=== PATIENT | female | born 1965 | race Caucasian/White ===

== ENCOUNTER 2019-08-30 11:52 | Outpatient (CLI) | payer BC, SELFPAY ==
[2019-08-30 12:37] LABS: Basophils Percent Auto 0.5 % (0.2-1.2); Eosinophils Absolute Auto 0.1 K/mm3 (0-0.3); Eosinophils Percent Auto 1.1 % (0-4.4); Hematocrit 51.3 % (37.0-47.0); Hemoglobin 17.2 g/dL (12.0-15.0); Immature Granulocyte Absolute 0.02 K/mm3 (0.00-0.031); Immature Granulocyte Percent A 0.2 % (0-0.5); Lymphocytes Absolute Auto 2.05 K/mm3 (0.9-3.2); Lymphocytes Percent Auto 25.2 % (18.3-44.2); Mean Corpuscular HGB Conc 33.5 g/dl (32-36); Mean Corpuscular Hemoglobin 30.1 pg (26-34); Mean Corpuscular Volume 89.7 fl (80-100); Mean Platelet Volume 10.7 fl (7.4-10.4); Monocytes Absolute Auto 0.6 K/mm3 (0.1-0.6); Monocytes Percent Auto 6.8 % (2.6-8.5); Neutrophils Absolute Auto 5.4 K/mm3 (1.3-6.7); Neutrophils Percent Auto 66.2 % (45.5-73.1); Platelet Count Result 266 k/mm3 (150-375); Red Blood Count 5.72 M/mm3 (4.2-5.4); Red Cell Distribution Width 12.7 % (11.5-14.5); White Blood Count 8.1 K/mm3 (4.5-10.0)
[2019-08-30 12:50] LABS: Alanine Aminotransferase 81 U/L (4-35); Albumin Level 4.6 g/dL (3.5-5.1); Alkaline Phosphatase 89 U/L (38-126); Amylase 103 U/L (30-110); Aspartate Amino Transferase 51 U/L (14-36); Blood Urea Nitrogen 21 mg/dL (7-17); Calcium 9.4 mg/dL (8.4-10.2); Carbon Dioxide 28 mmol/L (22-30); Chloride 101 mmol/L (98-107); Estimated Glomerular Filt Rate > 60; Glucose 93 mg/dL (65-105); Lipase 48 U/L (23-300); Potassium 4.6 mmol/L (3.4-5.0); Sodium 139 mmol/L (137-145)
== END 2019-08-30 11:53 | disposition home or self-care (01) ==
PROVIDERS: PCP Family Medicine; Visit Provider Physician Assistant
DX: R42 Dizziness and giddiness (principal); R10.9 Unspecified abdominal pain; Z85.72 Personal history of non-Hodgkin lymphomas
CPT/HCPCS: 36415; 80053; 82150; 83690; 85025

== ENCOUNTER 2021-05-28 14:20 | Inpatient (IN) | payer BC, SELFPAY ==
[2021-05-28] VITALS (7 sets, daily range): BP systolic 130–152; BP diastolic 76–103; PULSE 84–115; RESP 18; TEMP 36.9–37.3; O2SAT 91–98; BMI 32.0
--- NOTE | ~2021-05-28 | XR_ITS ---
EXAMINATION: XR chest 1V portable DATE: 05/28/2021 16:32 INDICATION: COVID positive presenting with shortness of breath TECHNIQUE: frontal view of the chest was obtained. COMPARISON: None FINDINGS: Subtle opacities in the right mid and bilateral lower lung zones. No pulmonary edema, pleural effusio n or pneumothorax. The cardiomediastinal silhouette is normal. Dense calcification projecting caudal to the left mainstem bronchus which could be related to mitral annular calcification or calcified lym ph node related to old granulomatous disease. Cholecystectomy clips in right upper quadrant. Mild tho racic dextroscoliosis. IMPRESSION: 1. Mild opacities in bilateral mid and lower lung zones which could represent atelectasis and/or pneu monia. Reviewed, dictated and finalized at location B. NESS BANKING SALES ASSISTANT IMPRESSION: 1. Mild opacities in bilateral mid and lower lung zones which could represent a telectasis and/or pneumonia.
--- NOTE | ~2021-05-28 | CT_ITS ---
EXAMINATION: CTA chest PE protocol EXAM DATE: 05/28/2021 18:15 INDICATION: covid +, hypoxia, elevated dimer. TECHNIQUE: Spiral CTA of the chest (pulmonary arteries) was performed with 100 cc Omnipaque 350 intr avenous contrast injection. Images were acquired during the pulmonary arterial phase. Coronal maxi mum intensity projection 3D-reconstructions were created by the technologist on dedicated workstation . Axial, coronal and sagittal reformatted images were reviewed. The dose-length product (DLP) for t his examination was 390.99 mGy-cm. The exposure was tailored according to patient size (auto mA exp osure control), and iterative reconstruction (ASIR) was used as additional dose reduction technique. There is no prior study for comparison. FINDINGS: There are no pulmonary emboli in the 1st through 3rd order (central and interlobar) pulmon jim arteries. Some loss of attenuation in the left basilar segmental pulmonary from respiratory sera on, these regions not confidently evaluated. No Intraluminal filling defects identified. No thoraci c aortic dissection. There is moderate amount of bilateral COVID pneumonia, appearance consistent wi th acute stage. There are no pleural or pericardial effusions. Tracheobronchial tree is patent. There is no mediastinal, hilar or axillary lymphadenopathy. There is no pneumothorax. Heart maxim l in size. No evidence of coronary arterial calcification. There are cholecystectomy clips. The b ones are unremarkable. IMPRESSION: 1. Limited left basilar segmental evaluation, but no pulmonary emboli are suspected. 2. Moderate COVID pneumonia. Reviewed, dictated and finalized at location A. PORTFOLIO MANAGER IMPRESSION: 1. Limited left basilar segmental evaluation, but no pulmonary emboli are susp ected. 2. Moderate COVID pneumonia.
--- NOTE | ~2021-05-28 | XR_ITS ---
EXAMINATION: XR chest 1V portable INDICATION: COVID 19 pneumonia TECHNIQUE: Portable AP chest at 0613 hours COMPARISON: 05/28/2021 FINDINGS: There are peripheral airspace opacities of the mid and lower lung zones. No pleural effusio n or pneumothorax is identified. The cardiomediastinal silhouette is normal. Surgical clips in the ri [facility] upper quadrant are likely from prior cholecystectomy. IMPRESSION: 1. Peripheral airspace opacities of the mid and lower lung zones, likely COVID 19 pneumonia. Reviewed, dictated and finalized at location A. ER SETTER
--- NOTE | 2021-05-28 16:21 | ECG_ITS ---
Measurements Intervals [place] Rate: 105 P: 40 IL: 153 QRS: 12 QRSD: 77 T: -4 QT: 326 QTc: 432 Interpretive Statements SINUS TACHYCARDIA POSSIBLE LEFT ATRIAL ENLARGEMENT BORDERLINE R WAVE PROGRESSION, ANTERIOR LEADS BORDERLINE T WAVE ABNORMALITY- INFERIOR LEADS BASELINE ARTIFACT- I, II, III, AVR, AVL, AVF, V1-V6 BORDERLINE ECG Electronically Signed On 05-28-2021 17:29:55 JOINT TERMINAL ATTACK CONTROLLER by Augie Carney D.O.
--- NOTE | 2021-05-28 16:46 | ED.SOB ---
HPI - SOB/Dyspnea General Chief Complaint: Shortness of Breath/Dyspnea <Jackie Diez PA-C - Last Filed: 05/28/21 20:48> Stated Complaint: covid, low 02 sats <FRAN Franks Last Filed: 05/28/21 20:48> Time Seen by Provider: 05/28/21 16:06 <FRAN Franks Last Filed: 05/28/21 20:48> Source: patient <FRAN Franks Last Filed: 05/28/21 20:48> Mode of arrival: ambulatory <FRAN Franks Last Filed: 05/28/21 20:48> Limitations: no limitations <FRAN Franks Last Filed: 05/28/21 20:48> History of Present Illness HPI Narrative: This is a 55 year old female that presents to the ER for low oxygen saturation. Reports she tested positive for COVID 5 days ago. Her symptoms started about a week ago. She is not vaccinated. She received monoclonal antibody infusion yesterday. Reports she had mostly been feeling better after this, but noticed that her oxygen saturation was low which prompted her to be seen today. Does report some shortness of breath and remaining cough. Denies fever or chest pain. <FRAN Franks Last Filed: 05/28/21 20:48> Related Data Home Medications: Home Medications Medication Instructions Recorded Confirmed Saccharomyces boulardii 250 mg 250 mg PO BID 03/17/21 05/27/21 capsule calcium carbonate 600 mg calcium 600 mg PO DAILY 03/17/21 05/27/21 (1,500 mg) tablet <FRAN Franks Last Filed: 05/28/21 20:48> Allergies/Adverse Reactions: Allergies Allergy/AdvReac Type Severity Reaction Status Date / Time latex Allergy Unknown Rash Verified 05/27/21 13:48 Sulfa (Sulfonamide Allergy Unknown Rash Verified 05/27/21 13:48 Antibiotics) sulfanilamide Allergy Unknown Rash Verified 05/27/21 13:48 <FRAN Franks Last Filed: 05/28/21 20:48> Review of Systems Review of Systems: CONSTITUTIONAL: Denies fever ENT: Reports congestion CARDIOVASCULAR: Denies chest pain, or edema. RESPIRATORY: Reports cough and dyspnea. <Jackie Diez PA-C - Last Filed: 05/28/21 20:48> All systems reviewed & are unremarkable except as noted in HPI and below <Jackie Diez PA-C - Last Filed: 05/28/21 20:48> PMFSH Past Medical History Medical History: Medical History Eczema History of non-Hodgkin's lymphoma <Jackie Diez PA-C - Last Filed: 05/28/21 20:48> Surgical History Surgical History: Surgical History History of appendectomy History of cholecystectomy <Jackie Diez PA-C - Last Filed: 05/28/21 20:48> Family History Family History: Family History Father Hypertension Family history of elevated blood lipids, Onset Age: 66 Family history of cardiovascular disease Mother Family history of hyperthyroidism Family history of blood dyscrasia, Onset Age: 66 Grandparent Family history of coronary artery disease, Onset Age: 62 Sibling Diabetes mellitus <Jackie Diez PA-C - Last Filed: 05/28/21 20:48> Social History Social History: Social History Smoking status: Never smoker Second hand tobacco smoke exposure: No Alcohol intake: current Drinks per week: 1 Alcohol use details: occasionally Substance use: never Substance use type: does not use Gender identity (if verbalized by the patient): Female Sexual Orientation (if Verbalized by the Patient): Straight or Heterosexual Spiritual care concerns: No <FRAN Franks Last Filed: 05/28/21 20:48> Exam Narrative: GENERAL: Well-appearing, well-nourished, and in no acute distress. HEAD: Normocephalic, atraumatic. EYES: EOMI. ENT: Nares clear, no rhinorrhea or epistaxis. Mucous membranes moist. Oropharynx without tonsillar hypertrophy exudate or other lesi
[2021-05-28 16:55] LABS: Basophils Percent Auto 0.1 % (0.2-1.2); Hematocrit 45.5 % (37.0-47.0); Hemoglobin 15.9 g/dL (12.0-15.0); Immature Granulocyte Absolute 0.03 K/mm3 (0.00-0.031); Immature Granulocyte Percent A 0.4 % (0-0.5); Lymphocytes Absolute Auto 0.55 K/mm3 (0.9-3.2); Lymphocytes Percent Auto 8.1 % (18.3-44.2); Mean Corpuscular HGB Conc 34.9 g/dl (32-36); Mean Corpuscular Hemoglobin 30.6 pg (26-34); Mean Corpuscular Volume 87.7 fl (80-100); Mean Platelet Volume 10.7 fl (7.4-10.4); Monocytes Absolute Auto 0.3 K/mm3 (0.1-0.6); Monocytes Percent Auto 3.8 % (2.6-8.5); Neutrophils Percent Auto 87.6 % (45.5-73.1); Platelet Count Result 180 k/mm3 (150-375); Red Blood Count 5.19 M/mm3 (4.2-5.4); Red Cell Distribution Width 12.9 % (11.5-14.5); White Blood Count 6.8 K/mm3 (4.5-10.0)
[2021-05-28 17:07] LABS: Lactic Acid Reflex 1.2 mmol/L (0.7-2.1)
[2021-05-28 17:11] LABS: INR 0.9; Partial Thromboplastin Time 37.5 SECONDS (22.3-36.8); Prothrombin Time 12.1 Seconds (11.1-14.7)
[2021-05-28 17:14] LABS: Alanine Aminotransferase 78 U/L (4-35); Albumin Level 4.1 g/dL (3.5-5.1); Alkaline Phosphatase 70 U/L (38-126); Anion Gap 9 mmol/L (8-16); Aspartate Amino Transferase 98 U/L (14-36); Bilirubin,Total 0.4 mg/dL (0.2-1.3); Blood Urea Nitrogen 38 mg/dL (7-17); CRP 8.2 mg/dL (<1.0); Calcium 8.8 mg/dL (8.4-10.2); Carbon Dioxide 23 mmol/L (22-30); Chloride 97 mmol/L (98-107); D Dimer 0.92 ug/mL (<0.48); Estimated CRCL calculation 40 ml/min; Estimated Glomerular Filt Rate 47; Glucose 223 mg/dL (65-110); Lactate Dehydrogenase 1104 U/L (313-618); Potassium 4.6 mmol/L (3.4-5.0); Sodium 129 mmol/L (137-145)
[2021-05-28] MEDS: SODIUM CHLORIDE 0.9% IV 1,000 ML 999 ML IV CONT (17:53)
--- NOTE | 2021-05-28 19:14 | PC.NURSE ---
Patient report received from FAUSTO Corbin. Assumed care of patient at this time.
[2021-05-28] MEDS: DEXAMETHASONE 2 MG TABLET 6 MG PO (19:29)
[2021-05-28] MEDS: REMDESIVIR 200 MG/NS 250 ML 200 MG/250 ML BAG 250 MG IVPB (19:49)
--- NOTE | 2021-05-28 20:41 | PM.IMHP ---
H&P: HPI History of Present Illness Date/Time: 05/28/21 20:41 Chief Complaint: Shortness of breath Narrative: This is a 55-year-old female with past medical history significant for non-Hodgkin's lymphoma. Patient presented today to the emergency room due to low oxygen saturation at home she had tested positive for COVID a few days ago and received monoclonal antibody infusion in the outpatient setting and felt better after this however she noticed that her pulse oximetry at home was in the 80s and decided to come to the emergency room for evaluation. Patient was having chills, fevers, body aches and pains, generalized malaise ,productive cough of greenish sputum, yellow nasal discharge, poor appetite, no nausea ,no vomiting, no diarrhea, no abdominal pain. Patient had been seen in the outpatient setting and she had been sent home on Z-Leonides antibiotic course of oral steroids with prednisone. Preliminary workup was significant for CT angio no pulmonary embolism but diffuse infiltrates. Patient has been admitted for further evaluation management and treatment. Review of Systems Review of Systems: Body aches and pains poor appetite persistent productive cough Constitutional: Constitutional: Reports chills, Reports fatigue, Reports fever(s), Reports malaise and Reports poor appetite Eyes: Eyes: Denies change in vision ENT: Denies dysphagia, Reports nasal congestion, Reports nasal discharge (Yellowish), Denies odynophagia and Denies sore throat Cardiovascular: Cardiovascular: Denies edema, Denies irregular heart rhythm, Denies leg edema, Denies lightheadedness, Denies radiating jaw, neck or arm pain, Denies palpitations, Denies dyspnea, Denies dyspnea on exertion, Denies orthopnea and Denies paroxysmal nocturnal dyspnea Respiratory: Respiratory: Reports change in phlegm color (Greenish), Reports cough, Reports excessive phlegm production and Reports dyspnea Gastrointestinal: Gastrointestinal: Denies abdominal pain, Denies dyspepsia, Denies heartburn, Denies diarrhea, Denies nausea and Denies vomiting Genitourinary: Genitourinary: Denies dysuria Musculoskeletal: Musculoskeletal: Reports myalgias Integumentary/Breasts: Skin/Breast: Denies rash Neurologic: Denies focal weakness and Denies Sensory deficit (Neuro) Psychiatric: Psychiatric: Reports no additional psychiatric complaints and Reports as per HPI Endocrine: Endocrine: Reports no additional endocrine complaints and Reports as per HPI Hematologic/Lymphatic: Hematologic/Lymphatic: Reports no additional hematologic/lymphatic complaints and Reports as per HPI Allergic/Immunologic: Allergic/Immunologic: Reports no additional allergic/immunologic complaints and Reports as per HPI [facility] Past Medical History Medical History Eczema History of non-Hodgkin's lymphoma Surgical History Surgical History History of appendectomy History of cholecystectomy Family History Family History Father Hypertension Family history of elevated blood lipids, Onset Age: 66 Family history of cardiovascular disease Mother Family history of hyperthyroidism Family history of blood dyscrasia, Onset Age: 66 Grandparent Family history of coronary artery disease, Onset Age: 62 Sibling Diabetes mellitus Social History Social History Smoking status: Never smoker Second hand tobacco smoke exposure: No Alcohol intake: current Drinks per week: 1 Alcohol use details: occasionally Substance use: never Substance use type: does not use Gender identity (if verbalized by the patient): Female Sexual Orientation (if Verbalized by the Patient): Straight or Heterosexual Spiritual care concerns: No Meds Home Medications and Allergies Home Medications Medication Instr
--- NOTE | 2021-05-28 22:13 | PC.NURSE ---
This patient, Chelo Stubbs, was admitted to 3 [facility] Surg Room 333-01 @2200. Patient/family oriented to hospital policies and general routines including ID bracelet, bed and alarms, visiting hours, pain management, procedures, bathroom and other care routines, personal items, smoking policy, room service/diet, and visiting hours. Information on how to activate the Rapid Response Team has been discussed. Patient/Family are encouraged to report perceived risks to care and to ask questions if they do not understand what they are told or what they should do.
[2021-05-29] VITALS (8 sets, daily range): BP systolic 112–136; BP diastolic 75–85; PULSE 85–91; RESP 18–20; TEMP 36.6–37.8; O2SAT 91–94
[2021-05-29] MEDS: BENZONATATE 100 MG CAPSULE PO ×2 (03:35→09:51)
[2021-05-29] MEDS: cefTRIAXone 2 GM in SODIUM CHLORIDE 0.9% IV 100 ML 200 ML IVPB ×2 (03:35→21:09)
--- NOTE | 2021-05-29 04:31 | PC.NURSE ---
pt satting 85% on 2L at 4am, turned up one at a time and patient would not reach 90%. Gave cough medicine and had her on 5L, she stayed at 89%. Changed to high flow tubing and put her on 6L HF, patient stated she had walked to bathroom prior, obtained bedside commode and talked to her about the importance of bedrest/saving her strength. At this time she is still on 6L high flow and satting 94% she agreed to bedrest as opposed to walking to bathroom etc.
[2021-05-29 07:48] LABS: Alanine Aminotransferase 70 U/L (4-35); Estimated CRCL calculation 80 ml/min; Estimated Glomerular Filt Rate > 60
[2021-05-29 07:50] LABS: INR 0.9; Prothrombin Time 12.3 Seconds (11.1-14.7)
[2021-05-29] MEDS: DEXAMETHASONE 2 MG TABLET 6 MG PO (09:51)
--- NOTE | 2021-05-29 12:27 | PM.IMPN ---
Progress Note: A&P Assessment and Plan (1) 2019 novel coronavirus-infected pneumonia (NCIP): Code(s): U07.1 - COVID-19; J12.82 - Pneumonia due to coronavirus disease 2019 Status: Acute Assessment and Plan: Started on remdesivir and dexamethasone 05/28 Rocephin and Zithromax for empiric coverage for possible bacterial component Breathing treatments Supportive care No need for tocilizumab or baracitinib at this time. (2) Acute respiratory failure with hypoxia: Code(s): J96.01 - Acute respiratory failure with hypoxia Status: Acute Assessment and Plan: Supplemental oxygen by nasal cannula Goal saturation at 94% (3) History of non-Hodgkin's lymphoma: Code(s): Z85.72 - Personal history of non-Hodgkin lymphomas Status: Acute Assessment and Plan: Stable Subjective Date/time seen: 05/29/21 12:27 Interval history: 05/29 visit: Desaturated while walking to BR. Oxygen increased to from 4 to 6 L. Feels better now. Minimal cough. Mild acid taste, no anosmia. Mild chest discomfort with coughing. No GI issues. Review of Systems Review of Systems: All systems reviewed & are unremarkable except as noted in HPI and below Exam Narrative: HEENT: PERRL, sclerae nonicteric, pharyngeal mucosa pink and intact NECK: No JVD, adenopathy, or thyromegaly CHEST: BILATERAL LL CRACKLES, RIGHT > LEFT HEART: NL S1/S2, regular, no murmur ABDOMEN: BS+, soft, nontender, no mass, no bruits EXTREMITIES: No cyanosis, edema, or clubbing NEUROLOGIC: CN intact and symmetric to inspection. MUSCULOSKELETAL: Tone and strength symmetric. PSYCH: Alert. Oriented to person, place, and time. Objective Data Vital Signs Vital Signs: Vital Signs - 24 hr 05/28/21 15:02 05/28/21 16:26 05/28/21 16:54 Temperature 99.1 F Pulse Rate 115 H 90 99 Respiratory Rate 18 18 Blood Pressure 152/94 H 149/103 H Pulse Oximetry 93 91 94 05/28/21 18:35 05/28/21 22:29 05/28/21 23:32 Temperature 98.5 F 98.6 F Pulse Rate 92 87 84 Respiratory Rate 18 18 18 Blood Pressure 138/93 H 135/76 130/84 Pulse Oximetry 98 95 94 05/28/21 23:43 05/29/21 03:52 05/29/21 04:31 Temperature 98.2 F Pulse Rate 91 Respiratory Rate 20 Blood Pressure 112/78 Pulse Oximetry 96 91 94 05/29/21 08:00 Temperature 97.9 F Pulse Rate 89 Respiratory Rate 18 Blood Pressure 130/76 Pulse Oximetry 91 Intake/Output Intake/Output: Intake & Output 05/26/21 05/27/21 05/28/21 05/29/21 23:59 23:59 23:59 23:59 Intake Total 1250 940 Output Total 900 Balance 1250 40 Meds/Results Medications: Active Medications Generic Name Dose Route Start Last Admin Trade Name Freq PRN Reason Stop Dose Admin Albuterol 1 puff 05/29/21 03:01 Albuterol Sulfate (*Sp) Aerosol 1 Puff INHALATION Q4-6H PRN shortness of breath or wheezing Benzonatate 100 mg 05/29/21 03:01 05/29/21 09:51 Benzonatate 100 Mg Capsule PO 100 mg TID PRN Administration cough Dexamethasone 6 mg 05/29/21 08:00 05/29/21 09:51 Dexamethasone 2 Mg Tablet PO 06/07/21 08:01 6 mg DAILY@0800 EFRAÍN Administration Hydrocortisone 1 applic 05/29/21 03:01 Hydrocortisone 1% 30 Gm Cream TOPICAL DAILY PRN eczema Remdesivir 100 mg in 250 mls @ 250 mls/hr 05/29/21 22:00 IVPB 06/01/21 22:59 Q24H EFRAÍN Ceftriaxone Sodium 2 gm/ 100 mls @ 200 mls/hr 05/29/21 03:05 05/29/21 04:23 Sodium Chloride IVPB Infused DAILY@2200 EFRAÍN Infusion Azithromycin 500 mg in 250 mls @ 250 mls/hr 05/29/21 03:05 05/29/21 05:27 Zithromax IVPB Infused DAILY@2200 EFRAÍN Infusion Radiology Results: ITS Impressions Chest X-Ray 05/28/21 16:37 IMPRESSION: 1. Mild opacities in bilateral mid and lower lung zones which could represent atelectasis and/or pneumonia. Chest CTA 05/28/21 18:21 IMPRESSION: 1. Limited left basilar segmental evaluation, but no pulmonary emboli are suspected. 2. Moderate
[2021-05-29] MEDS: ENOXAPARIN 40 MG/0.4 ML SYRINGE SUB-Q (17:11)
[2021-05-29] MEDS: ACETAMINOPHEN 325 MG TABLET 650 MG PO (17:11)
[2021-05-29] MEDS: REMDESIVIR 100 MG/NS 250 ML 100 MG/250 ML BAG 250 MG IVPB (22:42)
[2021-05-30] VITALS: BP 107/68; PULSE 76; RESP 18; TEMP 36.2; O2SAT 90
[2021-05-30 04:00] VITALS: BP 110/64; PULSE 74; RESP 20; TEMP 36.3; O2SAT 92
[2021-05-30] MEDS: BENZONATATE 100 MG CAPSULE PO (06:30)
[2021-05-30 07:38] LABS: Alanine Aminotransferase 56 U/L (4-35); Estimated CRCL calculation 92 ml/min; Estimated Glomerular Filt Rate > 60
[2021-05-30 08:00] VITALS: BP 122/78; PULSE 73; RESP 18; TEMP 36.3; O2SAT 93
[2021-05-30 08:54] LABS: INR 0.9; Prothrombin Time 12.4 Seconds (11.1-14.7)
--- NOTE | 2021-05-30 09:22 | PM.IMPN ---
Progress Note: A&P Assessment and Plan (1) 2019 novel coronavirus-infected pneumonia (NCIP): Code(s): U07.1 - COVID-19; J12.82 - Pneumonia due to coronavirus disease 2019 Status: Acute Assessment and Plan: Started on remdesivir and dexamethasone 05/28 Rocephin and Zithromax for empiric coverage for possible bacterial component Breathing treatments Supportive care No need for tocilizumab or baracitinib at this time. (2) Acute respiratory failure with hypoxia: Code(s): J96.01 - Acute respiratory failure with hypoxia Status: Acute Assessment and Plan: Supplemental oxygen by nasal cannula Goal saturation at 94% (3) History of non-Hodgkin's lymphoma: Code(s): Z85.72 - Personal history of non-Hodgkin lymphomas Status: Acute Assessment and Plan: Stable Subjective Date/time seen: 05/30/21 09:22 Interval history: 05/30 visit: Oxygen remained at 6 L overnight. Feels a little better. Minimal cough. Mild acid taste, no anosmia. Mild chest discomfort with coughing. No GI issues. Review of Systems Review of Systems: All systems reviewed & are unremarkable except as noted in HPI and below Exam Narrative: HEENT: PERRL, sclerae nonicteric, pharyngeal mucosa pink and intact NECK: No JVD, adenopathy, or thyromegaly CHEST: BILATERAL BASILAR CRACKLES, RIGHT > LEFT HEART: NL S1/S2, regular, no murmur ABDOMEN: BS+, soft, nontender, no mass, no bruits EXTREMITIES: No cyanosis, edema, or clubbing NEUROLOGIC: CN intact and symmetric to inspection. MUSCULOSKELETAL: Tone and strength symmetric. PSYCH: Alert. Oriented to person, place, and time. Objective Data Vital Signs Vital Signs: Vital Signs - 24 hr 05/29/21 12:00 05/29/21 16:00 05/29/21 16:41 Temperature 98.5 F 100.0 F H 100 F H Pulse Rate 88 85 Respiratory Rate 18 18 Blood Pressure 129/78 136/85 Pulse Oximetry 93 93 05/29/21 17:11 05/29/21 20:00 05/30/21 00:00 Temperature 100 F H 98.4 F 97.1 F L Pulse Rate 86 76 Respiratory Rate 18 18 Blood Pressure 115/75 107/68 Pulse Oximetry 93 90 05/30/21 04:00 05/30/21 08:00 Temperature 97.4 F L 97.4 F L Pulse Rate 74 73 Respiratory Rate 20 18 Blood Pressure 110/64 122/78 Pulse Oximetry 92 93 Intake/Output Intake/Output: Intake & Output 05/27/21 05/28/21 05/29/21 05/30/21 23:59 23:59 23:59 23:59 Intake Total 1250 3260 450 Output Total 1650 600 Balance 1250 1610 -150 Meds/Results Medications: Active Medications Generic Name Dose Route Start Last Admin Trade Name Freq PRN Reason Stop Dose Admin Acetaminophen 650 mg 05/29/21 16:42 05/29/21 17:11 Acetaminophen 325 Mg Tablet PO 650 mg Q4H PRN Administration Pain or Fever Albuterol 1 puff 05/29/21 03:01 Albuterol Sulfate (*Sp) Aerosol 1 Puff INHALATION Q4-6H PRN shortness of breath or wheezing Benzonatate 100 mg 05/29/21 03:01 05/30/21 06:30 Benzonatate 100 Mg Capsule PO 100 mg TID PRN Administration cough Dexamethasone 6 mg 05/29/21 08:00 05/29/21 09:51 Dexamethasone 2 Mg Tablet PO 06/07/21 08:01 6 mg DAILY@0800 [facility] Administration Enoxaparin Sodium 40 mg 05/29/21 12:55 05/29/21 17:11 Enoxaparin 40 Mg/0.4 Ml Syringe SUB-Q 40 mg DAILY EFRAÍN Administration Hydrocortisone 1 applic 05/29/21 03:01 Hydrocortisone 1% 30 Gm Cream TOPICAL DAILY PRN eczema Remdesivir 100 mg in 250 mls @ 250 mls/hr 05/29/21 22:00 05/29/21 23:45 IVPB 06/01/21 22:59 Infused Q24H EFRAÍN Infusion Ceftriaxone Sodium 2 gm/ 100 mls @ 200 mls/hr 05/29/21 03:05 05/29/21 22:42 Sodium Chloride IVPB Infused DAILY@2200 EFRAÍN Infusion Azithromycin 500 mg in 250 mls @ 250 mls/hr 05/29/21 03:05 05/29/21 22:42 Zithromax IVPB Infused DAILY@2200 EFRAÍN Infusion Radiology Results: ITS Impressions Chest X-Ray 05/28/21 16:37 IMPRESSION: 1. Mild opacities in bilateral mid and lower lung zones which could rep
[2021-05-30] MEDS: ENOXAPARIN 40 MG/0.4 ML SYRINGE SUB-Q (10:05)
[2021-05-30] MEDS: DEXAMETHASONE 2 MG TABLET 6 MG PO (10:06)
[2021-05-30 12:00] VITALS: BP 134/84; PULSE 83; RESP 18; TEMP 36.9; O2SAT 91
[2021-05-30 16:00] VITALS: BP 124/77; PULSE 82; RESP 16; TEMP 36.6; O2SAT 93
[2021-05-30 20:00] VITALS: BP 129/81; PULSE 74; RESP 18; TEMP 36.7; O2SAT 92; O2SAT 94
[2021-05-30] MEDS: cefTRIAXone 2 GM in SODIUM CHLORIDE 0.9% IV 100 ML 200 ML IVPB (20:57)
[2021-05-30] MEDS: REMDESIVIR 100 MG/NS 250 ML 100 MG/250 ML BAG 250 MG IVPB (22:37)
[2021-05-31] VITALS (7 sets, daily range): BP systolic 120–143; BP diastolic 75–84; PULSE 71–99; RESP 12–24; TEMP 36.2–36.7; O2SAT 91–94
[2021-05-31] MEDS: BENZONATATE 100 MG CAPSULE PO (05:03)
[2021-05-31 06:54] LABS: Hematocrit 42.4 % (37.0-47.0); Hemoglobin 14.4 g/dL (12.0-15.0); Mean Corpuscular Hemoglobin 30.9 pg (26-34); Mean Platelet Volume 10.7 fl (7.4-10.4); Platelet Count Result 216 k/mm3 (150-375); Red Blood Count 4.66 M/mm3 (4.2-5.4); Red Cell Distribution Width 12.9 % (11.5-14.5); White Blood Count 6.8 K/mm3 (4.5-10.0)
[2021-05-31 07:05] LABS: Alanine Aminotransferase 73 U/L (4-35); Albumin Level 3.3 g/dL (3.5-5.1); Alkaline Phosphatase 64 U/L (38-126); Anion Gap 6 mmol/L (8-16); Aspartate Amino Transferase 61 U/L (14-36); Bilirubin,Total 0.4 mg/dL (0.2-1.3); Blood Urea Nitrogen 24 mg/dL (7-17); CRP 1.5 mg/dL (<1.0); Calcium 8.6 mg/dL (8.4-10.2); Carbon Dioxide 28 mmol/L (22-30); Chloride 101 mmol/L (98-107); Estimated CRCL calculation 109 ml/min; Estimated Glomerular Filt Rate > 60; Glucose 213 mg/dL (65-110); Lactate Dehydrogenase 838 U/L (313-618); Potassium 4.3 mmol/L (3.4-5.0); Sodium 135 mmol/L (137-145)
--- NOTE | 2021-05-31 09:40 | PM.IMPN ---
Progress Note: A&P Assessment and Plan (1) 2019 novel coronavirus-infected pneumonia (NCIP): Code(s): U07.1 - COVID-19; J12.82 - Pneumonia due to coronavirus disease 2019 Status: Acute Assessment and Plan: Started on remdesivir and dexamethasone day 3 Rocephin and Zithromax for empiric coverage for possible bacterial component Breathing treatments Wean supplemental oxygen to maintain saturation >92% Supportive care No need for tocilizumab or baracitinib at this time. [place] (2) Acute respiratory failure with hypoxia: Code(s): J96.01 - Acute respiratory failure with hypoxia Status: Acute Assessment and Plan: Supplemental oxygen by nasal cannula Goal saturation at 94% (3) History of non-Hodgkin's lymphoma: Code(s): Z85.72 - Personal history of non-Hodgkin lymphomas Status: Acute Assessment and Plan: Stable Time Spent With Patient Time with patient: Greater than 35 minutes Subjective Date/time seen: 05/31/21939 Interval history: Date/Time: 05/28/21 20:41 Narrative: This is a 55-year-old female with past medical history significant for non-Hodgkin's lymphoma. Patient presented today to the emergency room due to low oxygen saturation at home she had tested positive for COVID a few days ago and received monoclonal antibody infusion in the outpatient setting and felt better after this however she noticed that her pulse oximetry at home was in the 80s and decided to come to the emergency room for evaluation. Patient was having chills, fevers, body aches and pains, generalized malaise ,productive cough of greenish sputum, yellow nasal discharge, poor appetite, no nausea ,no vomiting, no diarrhea, no abdominal pain. Patient had been seen in the outpatient setting and she had been sent home on Z-Leonides antibiotic course of oral steroids with prednisone. Preliminary workup was significant for CT angio no pulmonary embolism but diffuse infiltrates. Patient has been admitted for further evaluation management and treatment. Date/Time 05/31/21939 Patient stated that she is feeling a lot better today. She stated that she has been nauseous however this she thinks it is because she has knee eaten yet. Patient denies chest pain, nausea, vomiting, abdominal pain, fatigue, weakness, lightheadedness. Patient did state that she gets short of breath when she wakes up however she does cough which has been helping her. She also has been up walking around she is not doing too much she is little shortness of breath winded but not too terribly bad. Patient also does have a cough which she stated was dry in nature. Patient was on 6 L nasal cannula and has been weaned down to 4 L at time of exam. Review of Systems Review of Systems: All systems reviewed & are unremarkable except as noted in HPI and below Exam Const: General: cooperative, well developed, alert, awake, ill appearing and tired appearing Nutritional Appearance: average body habitus Orientation/consciousness: oriented to person, oriented to place, oriented to time and patient oriented x3 HENMT: Head: normal to inspection, normocephalic and atraumatic Ears: hearing grossly normal bilaterally General nose exam: Normal external nose present Face and sinus: normal facial exam Eyes: General: appearance normal, both eyes and all related structures Alignment and Position: alignment normal Sclera: sclerae normal Pupils: Equal, round and reactive pupils present EOM: EOMs intact bilaterally Neck: Neck: normal visual inspection, full ROM, no lymphadenopathy, supple and no JVD Thyroid: thyroid normal Lymphatic: no lymphadenopathy noted Resp: Effort & Inspection: normal respiratory effort, able to speak in complete sentences and Actively coughing Auscultation: clear to auscultation bilaterally, no crackles, no rales, no rhonchi, no wheezes and diminished lung sounds Cardio: Jugular venous disten
[2021-05-31] MEDS: DEXAMETHASONE 2 MG TABLET 6 MG PO (09:51)
[2021-05-31] MEDS: ENOXAPARIN 40 MG/0.4 ML SYRINGE SUB-Q (09:51)
[2021-05-31 10:01] LABS: Prothrombin Time 13.1 Seconds (11.1-14.7)
[2021-05-31 10:03] LABS: D Dimer 0.72 ug/mL (<0.48)
--- NOTE | 2021-05-31 13:58 | PCNSR ---
On 05/31/21, the student, Tiffanie Alarcon, provided care and completed [facility] documentation on this patient. I have reviewed the student's documentation and agree with the findings.
--- NOTE | 2021-05-31 14:06 | PCNSR ---
On 05/31/21, the student, Tiffanie Alarcon, provided care and completed [facility] documentation on this patient. I have reviewed the student's documentation and agree with the findings.
[2021-05-31] MEDS: REMDESIVIR 100 MG/NS 250 ML 100 MG/250 ML BAG 250 MG IVPB (21:48)
[2021-05-31] MEDS: cefTRIAXone 2 GM in SODIUM CHLORIDE 0.9% IV 100 ML 200 ML IVPB (22:55)
[2021-06-01] VITALS (7 sets, daily range): BP systolic 114–134; BP diastolic 70–90; PULSE 70–83; RESP 16–20; TEMP 36.1–36.7; O2SAT 91–95
[2021-06-01] MEDS: ONDANSETRON INJ 4 MG/2 ML VIAL IV PUSH ×3 (00:52→22:10)
[2021-06-01] MEDS: BENZONATATE 100 MG CAPSULE PO (05:59)
[2021-06-01 06:26] LABS: Basophils Percent Auto 0.3 % (0.2-1.2); Hematocrit 41.3 % (37.0-47.0); Hemoglobin 14.2 g/dL (12.0-15.0); Immature Granulocyte Absolute 0.11 K/mm3 (0.00-0.031); Immature Granulocyte Percent A 1.6 % (0-0.5); Lymphocytes Absolute Auto 1.15 K/mm3 (0.9-3.2); Lymphocytes Percent Auto 16.6 % (18.3-44.2); Mean Corpuscular HGB Conc 34.4 g/dl (32-36); Mean Corpuscular Hemoglobin 30.6 pg (26-34); Mean Platelet Volume 10.7 fl (7.4-10.4); Monocytes Absolute Auto 0.8 K/mm3 (0.1-0.6); Monocytes Percent Auto 10.9 % (2.6-8.5); Neutrophils Absolute Auto 4.9 K/mm3 (1.3-6.7); Neutrophils Percent Auto 70.6 % (45.5-73.1); Platelet Count Result 230 k/mm3 (150-375); Red Blood Count 4.64 M/mm3 (4.2-5.4); Red Cell Distribution Width 12.5 % (11.5-14.5); White Blood Count 6.9 K/mm3 (4.5-10.0)
[2021-06-01 06:39] LABS: Alanine Aminotransferase 69 U/L (4-35); Albumin Level 3.2 g/dL (3.5-5.1); Alkaline Phosphatase 66 U/L (38-126); Anion Gap 4 mmol/L (8-16); Aspartate Amino Transferase 39 U/L (14-36); Bilirubin,Total 0.3 mg/dL (0.2-1.3); Blood Urea Nitrogen 24 mg/dL (7-17); Calcium 8.7 mg/dL (8.4-10.2); Carbon Dioxide 30 mmol/L (22-30); Chloride 99 mmol/L (98-107); Estimated CRCL calculation 92 ml/min; Estimated Glomerular Filt Rate > 60; Glucose 261 mg/dL (65-110); Potassium 4.5 mmol/L (3.4-5.0); Sodium 133 mmol/L (137-145)
[2021-06-01 07:06] LABS: Prothrombin Time 13.5 Seconds (11.1-14.7)
[2021-06-01] MEDS: DEXAMETHASONE 2 MG TABLET 6 MG PO (08:33)
[2021-06-01] MEDS: ENOXAPARIN 40 MG/0.4 ML SYRINGE SUB-Q (08:34)
--- NOTE | 2021-06-01 10:00 | PM.IMPN ---
Progress Note: A&P Assessment and Plan (1) 2019 novel coronavirus-infected pneumonia (NCIP): Code(s): U07.1 - COVID-19; J12.82 - Pneumonia due to coronavirus disease 2019 Status: Acute Assessment and Plan: Started on remdesivir and dexamethasone day 3 Rocephin and Zithromax for empiric coverage for possible bacterial component Breathing treatments Wean supplemental oxygen to maintain saturation >92% Supportive care No need for tocilizumab or baracitinib at this time. Mk and IS (2) Acute respiratory failure with hypoxia: Code(s): J96.01 - Acute respiratory failure with hypoxia Status: Acute Assessment and Plan: Supplemental oxygen by nasal cannula Goal saturation at 94% (3) History of non-Hodgkin's lymphoma: Code(s): Z85.72 - Personal history of non-Hodgkin lymphomas Status: Acute Assessment and Plan: Stable (4) Hyperglycemia: Code(s): R73.9 - Hyperglycemia, unspecified Status: Acute Assessment and Plan: Glucose is 261 on labs will add accu checks Sliding scale insulin Trend labs Adjust therapy as indicated Subjective Date/time seen: 06/01/21 10:00 Interval history: Date/Time: 05/28/21 20:41 Narrative: This is a 55-year-old female with past medical history significant for non-Hodgkin's lymphoma. Patient presented today to the emergency room due to low oxygen saturation at home she had tested positive for COVID a few days ago and received monoclonal antibody infusion in the outpatient setting and felt better after this however she noticed that her pulse oximetry at home was in the 80s and decided to come to the emergency room for evaluation. Patient was having chills, fevers, body aches and pains, generalized malaise ,productive cough of greenish sputum, yellow nasal discharge, poor appetite, no nausea ,no vomiting, no diarrhea, no abdominal pain. Patient had been seen in the outpatient setting and she had been sent home on Z-Leonides antibiotic course of oral steroids with prednisone. Preliminary workup was significant for CT angio no pulmonary embolism but diffuse infiltrates. Patient has been admitted for further evaluation management and treatment. Date/Time 05/31/21 0940 Patient stated that she is feeling a lot better today. She stated that she has been nauseous however this she thinks it is because she has knee eaten yet. Patient denies chest pain, nausea, vomiting, abdominal pain, fatigue, weakness, lightheadedness. Patient did state that she gets short of breath when she wakes up however she does cough which has been helping her. She also has been up walking around she is not doing too much she is little shortness of breath winded but not too terribly bad. Patient also does have a cough which she stated was dry in nature. Patient was on 6 L nasal cannula and has been weaned down to 4 L at time of exam. Date/Time 06/01/21 1000 Patient is sleeping at the time of exam. She stated that she wished they would do her night medications earlier as it causes her to have a disruption in sleep. She did state that she is eating good. She also stated that her back is hurting on the right side. She stated that she thinks this is from the cough and shortness of breath. She also has had some nausea last night around 11:30pm. she denies pain, chest pain, sweats, fevers, chills, vomiting, or abdominal pain. I did sit in with the patient and tried to wean her oxygen. I was able to get her to 2LNC. She did tolerate RA for a small while, but she did drop with activity to 85% with a very long recovery period, therefore, patient was placed back on 2LNC. Review of Systems Review of Systems: All systems reviewed & are unremarkable except as noted in HPI and below Exam Const: General: cooperative, well developed, alert, awake and tired appearing Nutritional Appearance: average body habitus Orientation/c
[2021-06-01 15:06] LABS: Hemoglobin A1C 5.9 % (<5.7)
[2021-06-01] MEDS: INSULIN ASPART (*BKC) 100 UNITS/ML SUB-Q (17:50)
[2021-06-01 17:59] LABS: Glucose Point of Care 316 mg/dl (65-105)
[2021-06-01 20:56] LABS: Glucose Point of Care 296 mg/dl (65-105)
[2021-06-01] MEDS: cefTRIAXone 2 GM in SODIUM CHLORIDE 0.9% IV 100 ML 200 ML IVPB (21:30)
[2021-06-01] MEDS: REMDESIVIR 100 MG/NS 250 ML 100 MG/250 ML BAG 250 MG IVPB (22:05)
[2021-06-02] VITALS (9 sets, daily range): BP systolic 112–131; BP diastolic 69–88; PULSE 68–94; RESP 16–18; TEMP 36.2–36.7; O2SAT 90–97
[2021-06-02 07:56] LABS: Basophils Percent Auto 0.3 % (0.2-1.2); Hematocrit 42.6 % (37.0-47.0); Hemoglobin 14.7 g/dL (12.0-15.0); Immature Granulocyte Absolute 0.24 K/mm3 (0.00-0.031); Immature Granulocyte Percent A 2.7 % (0-0.5); Lymphocytes Absolute Auto 1.81 K/mm3 (0.9-3.2); Lymphocytes Percent Auto 20.3 % (18.3-44.2); Mean Corpuscular HGB Conc 34.5 g/dl (32-36); Mean Corpuscular Hemoglobin 30.4 pg (26-34); Mean Corpuscular Volume 88.2 fl (80-100); Mean Platelet Volume 10.3 fl (7.4-10.4); Monocytes Absolute Auto 0.7 K/mm3 (0.1-0.6); Monocytes Percent Auto 7.8 % (2.6-8.5); Neutrophils Absolute Auto 6.2 K/mm3 (1.3-6.7); Neutrophils Percent Auto 68.9 % (45.5-73.1); Platelet Count Result 271 k/mm3 (150-375); Red Blood Count 4.83 M/mm3 (4.2-5.4); Red Cell Distribution Width 12.2 % (11.5-14.5); White Blood Count 8.9 K/mm3 (4.5-10.0)
[2021-06-02 08:13] LABS: Alanine Aminotransferase 56 U/L (4-35); Albumin Level 3.2 g/dL (3.5-5.1); Alkaline Phosphatase 69 U/L (38-126); Anion Gap 9 mmol/L (8-16); Aspartate Amino Transferase 31 U/L (14-36); Bilirubin,Total 0.4 mg/dL (0.2-1.3); Blood Urea Nitrogen 25 mg/dL (7-17); Calcium 8.6 mg/dL (8.4-10.2); Carbon Dioxide 29 mmol/L (22-30); Chloride 99 mmol/L (98-107); Estimated CRCL calculation 80 ml/min; Estimated Glomerular Filt Rate > 60; Glucose 197 mg/dL (65-110); Potassium 4.1 mmol/L (3.4-5.0); Sodium 137 mmol/L (137-145)
[2021-06-02 08:19] LABS: Glucose Point of Care 199 mg/dl (65-105)
[2021-06-02] MEDS: ENOXAPARIN 40 MG/0.4 ML SYRINGE SUB-Q (09:20)
[2021-06-02] MEDS: DEXAMETHASONE 2 MG TABLET 6 MG PO (09:20)
[2021-06-02 11:37] LABS: Glucose Point of Care 202 mg/dl (65-105)
[2021-06-02] MEDS: INSULIN ASPART (*BKC) 100 UNITS/ML SUB-Q ×2 (12:40→17:29)
--- NOTE | 2021-06-02 14:00 | PM.IMPN ---
Progress Note: A&P Assessment and Plan (1) 2019 novel coronavirus-infected pneumonia (NCIP): Code(s): U07.1 - COVID-19; J12.82 - Pneumonia due to coronavirus disease 2019 Status: Acute Assessment and Plan: Started on remdesivir and dexamethasone day 6 extended for 5 more days Rocephin and Zithromax for empiric coverage for possible bacterial component Breathing treatments Wean supplemental oxygen to maintain saturation >92% Supportive care Gave a dose of actamera one time Cornette and IS (2) Acute respiratory failure with hypoxia: Code(s): J96.01 - Acute respiratory failure with hypoxia Status: Acute Assessment and Plan: Supplemental oxygen by nasal cannula Goal saturation at 94% (3) History of non-Hodgkin's lymphoma: Code(s): Z85.72 - Personal history of non-Hodgkin lymphomas Status: Acute Assessment and Plan: Stable (4) Hyperglycemia: Code(s): R73.9 - Hyperglycemia, unspecified Status: Acute Assessment and Plan: Glucose is 197 on labs will add accu checks Sliding scale insulin A1c is 5.9 She will need outpatient follow up and will probably need a repeat in 3 months Trend labs Adjust therapy as indicated Time Spent With Patient Time with patient: Greater than 35 minutes Subjective Date/time seen: 06/02/21 1400 Interval history: Date/Time: 05/28/21 20:41 Narrative: This is a 55-year-old female with past medical history significant for non-Hodgkin's lymphoma. Patient presented today to the emergency room due to low oxygen saturation at home she had tested positive for COVID a few days ago and received monoclonal antibody infusion in the outpatient setting and felt better after this however she noticed that her pulse oximetry at home was in the 80s and decided to come to the emergency room for evaluation. Patient was having chills, fevers, body aches and pains, generalized malaise ,productive cough of greenish sputum, yellow nasal discharge, poor appetite, no nausea ,no vomiting, no diarrhea, no abdominal pain. Patient had been seen in the outpatient setting and she had been sent home on Z-Leonides antibiotic course of oral steroids with prednisone. Preliminary workup was significant for CT angio no pulmonary embolism but diffuse infiltrates. Patient has been admitted for further evaluation management and treatment. Date/Time 05/31/21 0940 Patient stated that she is feeling a lot better today. She stated that she has been nauseous however this she thinks it is because she has knee eaten yet. Patient denies chest pain, nausea, vomiting, abdominal pain, fatigue, weakness, lightheadedness. Patient did state that she gets short of breath when she wakes up however she does cough which has been helping her. She also has been up walking around she is not doing too much she is little shortness of breath winded but not too terribly bad. Patient also does have a cough which she stated was dry in nature. Patient was on 6 L nasal cannula and has been weaned down to 4 L at time of exam. Date/Time 06/01/21 1000 Patient is sleeping at the time of exam. She stated that she wished they would do her night medications earlier as it causes her to have a disruption in sleep. She did state that she is eating good. She also stated that her back is hurting on the right side. She stated that she thinks this is from the cough and shortness of breath. She also has had some nausea last night around 11:30pm. she denies pain, chest pain, sweats, fevers, chills, vomiting, or abdominal pain. I did sit in with the patient and tried to wean her oxygen. I was able to get her to 2LNC. She did tolerate RA for a small while, but she did drop with activity to 85% with a very long recovery period, therefore, patient was placed back on 2LNC. Date/Time 06/02/21 1400 Patient is sitting up in the bed and seems to be pretty anxious. She
[2021-06-02] MEDS: ONDANSETRON INJ 4 MG/2 ML VIAL IV PUSH ×2 (14:44→21:08)
[2021-06-02 16:51] LABS: Glucose Point of Care 308 mg/dl (65-105)
[2021-06-02] MEDS: FUROSEMIDE INJ 40 MG/4 ML VIAL 20 MG IV PUSH (17:29)
[2021-06-02] MEDS: cefTRIAXone 2 GM in SODIUM CHLORIDE 0.9% IV 100 ML 200 ML IVPB (21:11)
[2021-06-02] MEDS: REMDESIVIR 100 MG/NS 250 ML 100 MG/250 ML BAG 250 MG IVPB (22:36)
[2021-06-03] VITALS (7 sets, daily range): BP systolic 118–130; BP diastolic 63–94; PULSE 66–84; RESP 16–17; TEMP 35.9–37.1; O2SAT 92–96
[2021-06-03] MEDS: BENZONATATE 100 MG CAPSULE PO (01:04)
[2021-06-03 07:09] LABS: Basophils Percent Auto 0.3 % (0.2-1.2); Eosinophils Percent Auto 0.1 % (0-4.4); Hematocrit 43.2 % (37.0-47.0); Hemoglobin 15.3 g/dL (12.0-15.0); Immature Granulocyte Absolute 0.37 K/mm3 (0.00-0.031); Immature Granulocyte Percent A 3.5 % (0-0.5); Lymphocytes Absolute Auto 1.67 K/mm3 (0.9-3.2); Lymphocytes Percent Auto 15.6 % (18.3-44.2); Mean Corpuscular HGB Conc 35.4 g/dl (32-36); Mean Corpuscular Hemoglobin 30.7 pg (26-34); Mean Corpuscular Volume 86.6 fl (80-100); Mean Platelet Volume 10.4 fl (7.4-10.4); Monocytes Absolute Auto 0.7 K/mm3 (0.1-0.6); Monocytes Percent Auto 6.9 % (2.6-8.5); Neutrophils Absolute Auto 7.9 K/mm3 (1.3-6.7); Neutrophils Percent Auto 73.6 % (45.5-73.1); Platelet Count Result 298 k/mm3 (150-375); Red Blood Count 4.99 M/mm3 (4.2-5.4); Red Cell Distribution Width 12.1 % (11.5-14.5); White Blood Count 10.7 K/mm3 (4.5-10.0)
[2021-06-03 07:22] LABS: INR 1.1; Prothrombin Time 14.3 Seconds (11.1-14.7)
[2021-06-03 07:25] LABS: Alanine Aminotransferase 53 U/L (4-35); Albumin Level 3.4 g/dL (3.5-5.1); Alkaline Phosphatase 78 U/L (38-126); Anion Gap 4 mmol/L (8-16); Aspartate Amino Transferase 29 U/L (14-36); Bilirubin,Total 0.4 mg/dL (0.2-1.3); Blood Urea Nitrogen 23 mg/dL (7-17); CRP 0.9 mg/dL (<1.0); Calcium 8.8 mg/dL (8.4-10.2); Carbon Dioxide 31 mmol/L (22-30); Chloride 97 mmol/L (98-107); D Dimer 0.77 ug/mL (<0.48); Estimated CRCL calculation 80 ml/min; Estimated Glomerular Filt Rate > 60; Glucose 215 mg/dL (65-110); Lactate Dehydrogenase 680 U/L (313-618); Potassium 3.8 mmol/L (3.4-5.0); Sodium 132 mmol/L (137-145)
[2021-06-03 07:35] LABS: NT Pro B Type Natriuretic Pept 142 pg/mL (5-100)
[2021-06-03 08:42] LABS: Glucose Point of Care 158 mg/dl (65-105)
--- NOTE | 2021-06-03 09:15 | PM.IMPN ---
Progress Note: A&P Assessment and Plan (1) 2019 novel coronavirus-infected pneumonia (NCIP): Code(s): U07.1 - COVID-19; J12.82 - Pneumonia due to coronavirus disease 2019 Status: Acute Assessment and Plan: Started on remdesivir and dexamethasone day 7 Rocephin and Zithromax for empiric coverage for possible bacterial component Breathing treatments Wean supplemental oxygen to maintain saturation >92% Supportive care Gave a dose of actamera one time Cornette and IS (2) Acute respiratory failure with hypoxia: Code(s): J96.01 - Acute respiratory failure with hypoxia Status: Acute Assessment and Plan: Sating about 89% on room air Walking and activity her saturations do go up Supplemental oxygen by nasal cannula Goal saturation at 94% (3) History of non-Hodgkin's lymphoma: Code(s): Z85.72 - Personal history of non-Hodgkin lymphomas Status: Acute Assessment and Plan: Stable (4) Hyperglycemia: Code(s): R73.9 - Hyperglycemia, unspecified Status: Acute Assessment and Plan: Glucose is 215 on labs will add accu checks Sliding scale insulin A1c is 5.9 She will need outpatient follow up and will probably need a repeat in 3 months Trend labs Adjust therapy as indicated Counselled about the need for increased activity and watch carbs and sugars for 10 minutes Time Spent With Patient Time with patient: Greater than 35 minutes Subjective Date/time seen: 06/03/21 0915 Interval history: Date/Time: 05/28/21 20:41 Narrative: This is a 55-year-old female with past medical history significant for non-Hodgkin's lymphoma. Patient presented today to the emergency room due to low oxygen saturation at home she had tested positive for COVID a few days ago and received monoclonal antibody infusion in the outpatient setting and felt better after this however she noticed that her pulse oximetry at home was in the 80s and decided to come to the emergency room for evaluation. Patient was having chills, fevers, body aches and pains, generalized malaise ,productive cough of greenish sputum, yellow nasal discharge, poor appetite, no nausea ,no vomiting, no diarrhea, no abdominal pain. Patient had been seen in the outpatient setting and she had been sent home on Z-Leonides antibiotic course of oral steroids with prednisone. Preliminary workup was significant for CT angio no pulmonary embolism but diffuse infiltrates. Patient has been admitted for further evaluation management and treatment. Date/Time 05/31/21 0940 Patient stated that she is feeling a lot better today. She stated that she has been nauseous however this she thinks it is because she has knee eaten yet. Patient denies chest pain, nausea, vomiting, abdominal pain, fatigue, weakness, lightheadedness. Patient did state that she gets short of breath when she wakes up however she does cough which has been helping her. She also has been up walking around she is not doing too much she is little shortness of breath winded but not too terribly bad. Patient also does have a cough which she stated was dry in nature. Patient was on 6 L nasal cannula and has been weaned down to 4 L at time of exam. Date/Time 06/01/21 1000 Patient is sleeping at the time of exam. She stated that she wished they would do her night medications earlier as it causes her to have a disruption in sleep. She did state that she is eating good. She also stated that her back is hurting on the right side. She stated that she thinks this is from the cough and shortness of breath. She also has had some nausea last night around 11:30pm. she denies pain, chest pain, sweats, fevers, chills, vomiting, or abdominal pain. I did sit in with the patient and tried to wean her oxygen. I was able to get her to 2LNC. She did tolerate RA for a small while, but she did drop with activity to 85% with a very long recovery period,
[2021-06-03] MEDS: DEXAMETHASONE 2 MG TABLET 6 MG PO (10:45)
[2021-06-03] MEDS: ENOXAPARIN 40 MG/0.4 ML SYRINGE SUB-Q (10:46)
[2021-06-03 12:13] LABS: Glucose Point of Care 186 mg/dl (65-105)
[2021-06-03 17:10] LABS: Glucose Point of Care 337 mg/dl (65-105)
[2021-06-03] MEDS: INSULIN ASPART (*BKC) 100 UNITS/ML SUB-Q (18:20)
[2021-06-03] MEDS: polyethylene glycoL 3350 17 GM POWD.PACK PO (18:21)
[2021-06-03 20:24] LABS: Glucose Point of Care 385 mg/dl (65-105)
[2021-06-03] MEDS: cefTRIAXone 2 GM in SODIUM CHLORIDE 0.9% IV 100 ML 200 ML IVPB (20:48)
[2021-06-03] MEDS: REMDESIVIR 100 MG/NS 250 ML 100 MG/250 ML BAG 250 MG IVPB (20:50)
[2021-06-03] MEDS: INSULIN ASPART (*BKC) 100 UNITS/ML 8 UNITS SUB-Q (23:17)
[2021-06-04] MEDS: MELATONIN 3 MG TABLET 6 MG PO ×2 (03:29→21:14)
[2021-06-04 03:35] VITALS: BP 109/74; PULSE 64; RESP 18; TEMP 36.1; O2SAT 94
[2021-06-04 07:48] LABS: Basophils Absolute Auto 0.1 K/mm3 (0.0-0.1); Basophils Percent Auto 0.4 % (0.2-1.2); Eosinophils Absolute Auto 0.1 K/mm3 (0-0.3); Eosinophils Percent Auto 0.4 % (0-4.4); Hematocrit 41.9 % (37.0-47.0); Hemoglobin 14.8 g/dL (12.0-15.0); Immature Granulocyte Absolute 0.53 K/mm3 (0.00-0.031); Immature Granulocyte Percent A 3.8 % (0-0.5); Lymphocytes Absolute Auto 1.56 K/mm3 (0.9-3.2); Lymphocytes Percent Auto 11.2 % (18.3-44.2); Mean Corpuscular HGB Conc 35.3 g/dl (32-36); Mean Corpuscular Hemoglobin 29.9 pg (26-34); Mean Corpuscular Volume 84.6 fl (80-100); Mean Platelet Volume 10.2 fl (7.4-10.4); Monocytes Absolute Auto 0.9 K/mm3 (0.1-0.6); Monocytes Percent Auto 6.4 % (2.6-8.5); Neutrophils Absolute Auto 10.8 K/mm3 (1.3-6.7); Neutrophils Percent Auto 77.8 % (45.5-73.1); Platelet Count Result 354 k/mm3 (150-375); Red Blood Count 4.95 M/mm3 (4.2-5.4); Red Cell Distribution Width 12.1 % (11.5-14.5); White Blood Count 13.9 K/mm3 (4.5-10.0)
[2021-06-04 07:54] LABS: Alanine Aminotransferase 51 U/L (4-35); Albumin Level 3.1 g/dL (3.5-5.1); Alkaline Phosphatase 71 U/L (38-126); Anion Gap 5 mmol/L (8-16); Aspartate Amino Transferase 31 U/L (14-36); Bilirubin,Total 0.4 mg/dL (0.2-1.3); Blood Urea Nitrogen 24 mg/dL (7-17); Calcium 8.6 mg/dL (8.4-10.2); Carbon Dioxide 30 mmol/L (22-30); Chloride 99 mmol/L (98-107); Estimated CRCL calculation 80 ml/min; Estimated Glomerular Filt Rate > 60; Glucose 172 mg/dL (65-110); Magnesium 2.1 mg/dL (1.6-2.3); Potassium 4.1 mmol/L (3.4-5.0); Sodium 134 mmol/L (137-145)
[2021-06-04 08:00] VITALS: PULSE 64; RESP 18; O2SAT 94
[2021-06-04 08:01] LABS: INR 1.1; Prothrombin Time 13.7 Seconds (11.1-14.7)
[2021-06-04 08:17] LABS: Glucose Point of Care 163 mg/dl (65-105)
--- NOTE | 2021-06-04 10:00 | PM.IMPN ---
Progress Note: A&P Assessment and Plan (1) 2019 novel coronavirus-infected pneumonia (NCIP): Code(s): U07.1 - COVID-19; J12.82 - Pneumonia due to coronavirus disease 2019 Status: Acute Assessment and Plan: Started on remdesivir and dexamethasone day 8 Rocephin and Zithromax dc'd at this time Breathing treatments Wean supplemental oxygen to maintain saturation >92% Supportive care Gave a dose of actamera one time Cornette and IS (2) Acute respiratory failure with hypoxia: Code(s): J96.01 - Acute respiratory failure with hypoxia Status: Acute Assessment and Plan: Sating about 89% on room air after activity Walking and activity her saturations do go up Supplemental oxygen by nasal cannula Goal saturation at 94% (3) History of non-Hodgkin's lymphoma: Code(s): Z85.72 - Personal history of non-Hodgkin lymphomas Status: Acute Assessment and Plan: Stable (4) Hyperglycemia: Code(s): R73.9 - Hyperglycemia, unspecified Status: Acute Assessment and Plan: Glucose is 172 on labs will add accu checks Sliding scale insulin A1c is 5.9 She will need outpatient follow up and will probably need a repeat in 3 months Trend labs Adjust therapy as indicated Time Spent With Patient Time with patient: Greater than 35 minutes Subjective Date/time seen: 06/04/21 1000 Interval history: Date/Time: 05/28/21 20:41 Narrative: This is a 55-year-old female with past medical history significant for non-Hodgkin's lymphoma. Patient presented today to the emergency room due to low oxygen saturation at home she had tested positive for COVID a few days ago and received monoclonal antibody infusion in the outpatient setting and felt better after this however she noticed that her pulse oximetry at home was in the 80s and decided to come to the emergency room for evaluation. Patient was having chills, fevers, body aches and pains, generalized malaise ,productive cough of greenish sputum, yellow nasal discharge, poor appetite, no nausea ,no vomiting, no diarrhea, no abdominal pain. Patient had been seen in the outpatient setting and she had been sent home on Z-Leonides antibiotic course of oral steroids with prednisone. Preliminary workup was significant for CT angio no pulmonary embolism but diffuse infiltrates. Patient has been admitted for further evaluation management and treatment. Date/Time 05/31/21 0940 Patient stated that she is feeling a lot better today. She stated that she has been nauseous however this she thinks it is because she has knee eaten yet. Patient denies chest pain, nausea, vomiting, abdominal pain, fatigue, weakness, lightheadedness. Patient did state that she gets short of breath when she wakes up however she does cough which has been helping her. She also has been up walking around she is not doing too much she is little shortness of breath winded but not too terribly bad. Patient also does have a cough which she stated was dry in nature. Patient was on 6 L nasal cannula and has been weaned down to 4 L at time of exam. Date/Time 06/01/21 1000 Patient is sleeping at the time of exam. She stated that she wished they would do her night medications earlier as it causes her to have a disruption in sleep. She did state that she is eating good. She also stated that her back is hurting on the right side. She stated that she thinks this is from the cough and shortness of breath. She also has had some nausea last night around 11:30pm. she denies pain, chest pain, sweats, fevers, chills, vomiting, or abdominal pain. I did sit in with the patient and tried to wean her oxygen. I was able to get her to 2LNC. She did tolerate RA for a small while, but she did drop with activity to 85% with a very long recovery period, therefore, patient was placed back on 2LNC. Date/Time 06/02/21 1400 Patient is sitting up in the bed and
[2021-06-04] MEDS: DEXAMETHASONE 2 MG TABLET 6 MG PO ×2 (10:28→17:29)
[2021-06-04] MEDS: ENOXAPARIN 40 MG/0.4 ML SYRINGE SUB-Q (10:28)
[2021-06-04 12:05] LABS: Glucose Point of Care 187 mg/dl (65-105)
[2021-06-04 14:00] VITALS: BP 127/84; PULSE 75; RESP 16; TEMP 36.6; O2SAT 94
[2021-06-04] MEDS: INSULIN ASPART (*BKC) 100 UNITS/ML SUB-Q ×2 (17:27→22:15)
[2021-06-04 18:50] LABS: Glucose Point of Care 374 mg/dl (65-105)
[2021-06-04] MEDS: REMDESIVIR 100 MG/NS 250 ML 100 MG/250 ML BAG 250 MG IVPB (21:14)
[2021-06-04 21:47] LABS: Glucose Point of Care 363 mg/dl (65-105)
[2021-06-04 21:48] VITALS: BP 121/73; PULSE 78; RESP 18; TEMP 36.5; O2SAT 90
[2021-06-05 05:28] VITALS: BP 144/73; PULSE 56; RESP 16; TEMP 36.4; O2SAT 91
[2021-06-05 06:59] LABS: Basophils Percent Auto 0.2 % (0.2-1.2); Eosinophils Percent Auto 0.1 % (0-4.4); Hematocrit 40.9 % (37.0-47.0); Hemoglobin 14.5 g/dL (12.0-15.0); Immature Granulocyte Absolute 0.68 K/mm3 (0.00-0.031); Immature Granulocyte Percent A 4.6 % (0-0.5); Lymphocytes Percent Auto 8.1 % (18.3-44.2); Mean Corpuscular HGB Conc 35.5 g/dl (32-36); Mean Corpuscular Hemoglobin 30.1 pg (26-34); Mean Corpuscular Volume 84.9 fl (80-100); Mean Platelet Volume 10.3 fl (7.4-10.4); Monocytes Absolute Auto 0.7 K/mm3 (0.1-0.6); Monocytes Percent Auto 4.5 % (2.6-8.5); Neutrophils Absolute Auto 12.2 K/mm3 (1.3-6.7); Neutrophils Percent Auto 82.5 % (45.5-73.1); Platelet Count Result 340 k/mm3 (150-375); Red Blood Count 4.82 M/mm3 (4.2-5.4); White Blood Count 14.8 K/mm3 (4.5-10.0)
[2021-06-05 07:12] LABS: Alanine Aminotransferase 51 U/L (4-35); Albumin Level 3.2 g/dL (3.5-5.1); Alkaline Phosphatase 82 U/L (38-126); Anion Gap 5 mmol/L (8-16); Aspartate Amino Transferase 30 U/L (14-36); Bilirubin,Total 0.4 mg/dL (0.2-1.3); Blood Urea Nitrogen 21 mg/dL (7-17); CRP < 0.5 mg/dL (<1.0); Calcium 8.6 mg/dL (8.4-10.2); Carbon Dioxide 28 mmol/L (22-30); Chloride 98 mmol/L (98-107); Estimated CRCL calculation 109 ml/min; Estimated Glomerular Filt Rate > 60; Glucose 239 mg/dL (65-110); Lactate Dehydrogenase 566 U/L (313-618); Magnesium 2.1 mg/dL (1.6-2.3); Potassium 4.1 mmol/L (3.4-5.0); Sodium 131 mmol/L (137-145)
[2021-06-05 07:17] LABS: Prothrombin Time 13.3 Seconds (11.1-14.7)
[2021-06-05 07:19] LABS: D Dimer 0.59 ug/mL (<0.48)
[2021-06-05 07:59] LABS: Glucose Point of Care 188 mg/dl (65-105)
[2021-06-05] MEDS: ENOXAPARIN 40 MG/0.4 ML SYRINGE SUB-Q (08:32)
[2021-06-05 08:33] VITALS: RESP 16; O2SAT 93
[2021-06-05] MEDS: DEXAMETHASONE 2 MG TABLET 6 MG PO (08:33)
--- NOTE | 2021-06-05 08:45 | PM.DS ---
DS: Admitting Diagnosis Discharge Date date of service 06/05/2021 at 8:45 a.m. Admitting Diagnosis COVID-19 DS: Discharge Diagnosis Discharge Diagnosis (1) 2019 novel coronavirus-infected pneumonia (NCIP): Code(s): U07.1 - COVID-19; J12.82 - Pneumonia due to coronavirus disease 2019 Status: Acute Assessment and Plan: Started on remdesivir and dexamethasone day 8 Rocephin and Zithromax dc'd at this time Breathing treatments Wean supplemental oxygen to maintain saturation >92% Supportive care Gave a dose of actamera one time Cornette and IS inflammatory markers declining D-dimer 0.59, ferritin 605, LDH 566, CRP less than 0.5 (2) Acute respiratory failure with hypoxia: Code(s): J96.01 - Acute respiratory failure with hypoxia Status: Acute Assessment and Plan: Sating about 89% on room air after activity Walking and activity her saturations do go up Supplemental oxygen by nasal cannula Goal saturation at 94% maintaining room air with saturations of 90-92% (3) History of non-Hodgkin's lymphoma: Code(s): Z85.72 - Personal history of non-Hodgkin lymphomas Status: Acute Assessment and Plan: Stable (4) Hyperglycemia: Code(s): R73.9 - Hyperglycemia, unspecified Status: Acute Assessment and Plan: Glucose is 239 on labs will add accu checks Sliding scale insulin A1c is 5.9 She will need outpatient follow up and will probably need a repeat in 3 months Trend labs Adjust therapy as indicated DS: Summary Hospital Course Hospital Course: patient is a 55-year-old female with a past medical history of non-Hodgkin's lymphoma who presented to the ED for shortness of breath and saturations in the 80s. Patient has been treated with 9 days of remdesivir and Decadron. Patient was also treated with Rocephin and Zithromax for 5 days. Supplemental oxygen was used to support saturations and maintain saturations greater than 92%. Patient was also given medical therapy in the outpatient setting and also 1 dose of Actemra in-patient. Labs have been stable throughout the entire visit. Inflammatory markers have for been trending down. Glucose has been elevated and A1c was 5.9. Talked to patient about being borderline diabetic and educated her about better diet choices and activity. Also talked to patient about getting her A1c checked in October. Patient also did get a CT done while being here. CTA showed no pulmonary embolism but infiltrates. Today patient got up and said she feels that she has and is ready to go home. Patient denies chest pain, weakness, fatigue, nausea, vomiting, diarrhea, constipation, sweats, fevers, chills. I did walk patient in the room patient was able to maintain saturations about 92 with activity. When sitting down to rest though patient does drop to 88-90%. Walk test was ordered. Status at Discharge Functional status at discharge: independent ambulation Overall status at discharge: patient is progressing back to baseline Time Spent with Patient Time attestation: Total time spent providing and/or coordinating discharge services:52 Minutes Time spent: Greater than 30 minutes Exam Const: General: cooperative, well developed, alert and awake Nutritional Appearance: average body habitus Orientation/consciousness: oriented to person, oriented to place, oriented to time and patient oriented x3 HENMT: Head: normal to inspection, normocephalic and atraumatic Ears: hearing grossly normal bilaterally General nose exam: Normal external nose present Face and sinus: normal facial exam Eyes: General: appearance normal, both eyes and all related structures Alignment and Position: alignment normal Sclera: sclerae normal Pupils: Equal, round and reactive pupils present EOM: EOMs intact bilaterally Neck: Neck: normal visual inspection, full ROM, no lymphadenopathy, supple and no JVD Thyroid: thyroi
[2021-06-05 12:00] VITALS: PULSE 78; O2SAT 95
[2021-06-05 12:10] VITALS: PULSE 104; O2SAT 94
[2021-06-05 12:15] LABS: Glucose Point of Care 315 mg/dl (65-105)
== END 2021-06-05 12:30 | disposition home or self-care (01) | DRG 177 ==
LOC: ANHED 20:47 → ANH3MEDSUR 21:59
PROVIDERS: Internal Medicine; Physician Assistant; Admitting Provider Internal Medicine; Emergency Provider Emergency Medicine; PCP Family Medicine; Visit Provider Nurse Practitioner
DX: U07.1 COVID-19 (principal); J12.82 Pneumonia due to coronavirus disease 2019; J96.01 Acute respiratory failure with hypoxia; R73.9 Hyperglycemia, unspecified; L30.9 Dermatitis, unspecified; Z85.72 Personal history of non-Hodgkin lymphomas; Z90.49 Acquired absence of other specified parts of digestive tract
CPT/HCPCS: 36415; 71045; 71275; 80053; 82565; 82728; 82948; 83036; 83605; 83615; 83735; 83880; 84460; 85025; 85027; 85380; 85610; 85730; 86140; 93005; 94618; 96361; 96365; 96366; 96367; 99285; A9270; G0378; J0456; J0696; J1650; J1815; J1940; J2405; J7030; J8540; Q0249; Q9967

== ENCOUNTER 2021-09-20 15:49 | Outpatient (CLI) | payer BC, SELFPAY ==
--- NOTE | ~2021-09-20 | MM_ITS ---
EXAMINATION: MM screening tim BI w [facility]ley HISTORY: Screening TECHNIQUE: Craniocaudal and mediolateral oblique 3-D tomosynthesis images were obtained and synthetic 2-D images were generated. CAD analysis was submitted and interpreted. COMPARISON: Comparison to multiple prior studies sequentially, with oldest reviewed study dated 11/14. BREAST PARENCHYMAL COMPOSITION: There are scattered areas of fibroglandular density. FINDINGS: There is no evidence of suspicious mass, calcification, or architectural distortion to sugg est malignancy in either breast. There has been no suspicious interval change. IMPRESSION: 1. No mammographic evidence of malignancy. 2. Recommend routine screening mammography in one year. BI-RADS Category 1: Negative Reviewed, dictated and finalized at location A.
== END 2021-09-20 15:50 | disposition home or self-care (01) ==
LOC: ANHIMG 15:51
PROVIDERS: PCP Family Medicine; Visit Provider Obstetrics & Gynecology
DX: Z12.31 Encounter for screening mammogram for malignant neoplasm of breast (principal)
CPT/HCPCS: 77063; 77067

== ENCOUNTER 2021-11-18 14:26 | Outpatient (RCR) | payer BC, SELFPAY ==
[2021-05-27] MEDS: FAMOTIDINE 20 MG TABLET PO (13:41)
[2021-05-27] MEDS: ACETAMINOPHEN 325 MG TABLET 650 MG PO (13:41)
[2021-05-27] MEDS: diphenhydrAMINE HCl CAP 25 MG CAPSULE PO (13:41)
[2021-05-27 13:42] VITALS: BP 137/91; PULSE 125; RESP 16; TEMP 37.1; O2SAT 94
[2021-05-27 15:06] VITALS: BP 146/76
--- NOTE | 2021-05-28 08:56 | PC.NURSE ---
Called Ms Stubbs and she stated she is feeling better and has no questions at this time.
[2021-11-18 14:34] VITALS: BP 139/89; PULSE 86; RESP 18; TEMP 37.8; O2SAT 98
[2021-11-18] MEDS: FAMOTIDINE 20 MG TABLET PO (14:38)
[2021-11-18] MEDS: ACETAMINOPHEN 325 MG TABLET 650 MG PO (14:38)
[2021-11-18] MEDS: diphenhydrAMINE HCl CAP 25 MG CAPSULE PO (14:38)
[2021-11-18] MEDS: BEBTELOVIMAB 175 MG/2 ML VIAL IV PUSH (14:55)
[2021-11-18 15:30] VITALS: BP 131/79; PULSE 88; RESP 18; O2SAT 95
== END 2021-11-18 16:00 ==
LOC: AMCINF 14:26
PROVIDERS: PCP Physician Assistant; Visit Provider Internal Medicine Hematology & Oncology
DX: U07.1 COVID-19 (principal)
CPT/HCPCS: A9270; M0222; M0245; Q0222; Q0245

== ENCOUNTER 2023-03-13 07:21 | Outpatient (CLI) | payer BC, SELFPAY ==
--- NOTE | ~2023-03-13 | MM_ITS ---
EXAMINATION: MM screening tim BI w ashley HISTORY: Screening mammogram TECHNIQUE: Craniocaudal and mediolateral oblique 3-D tomosynthesis images were obtained and synthetic 2-D images were generated. CAD analysis was submitted and interpreted. COMPARISON: September 20, 2021, June 2019 bilateral screening examinations BREAST PARENCHYMAL COMPOSITION: There are scattered areas of fibroglandular density. FINDINGS: There is no evidence of suspicious mass, calcification, or architectural distortion to sugg est malignancy in either breast. There has been no suspicious interval change. IMPRESSION: 1. No mammographic evidence of malignancy. 2. Recommend routine screening mammography in one year. BI-RADS Category 1: Negative Reviewed, dictated and finalized at location A.
== END 2023-03-13 07:22 | disposition home or self-care (01) ==
LOC: ANHIMG 07:24
PROVIDERS: PCP Family Medicine; Visit Provider Obstetrics & Gynecology
DX: Z12.31 Encounter for screening mammogram for malignant neoplasm of breast (principal)
CPT/HCPCS: 77063; 77067

== ENCOUNTER 2024-03-20 14:29 | Outpatient (CLI) | payer BC, SELFPAY ==
--- NOTE | ~2024-03-20 | MM_ITS ---
EXAMINATION: MM screening tim BI w ashley HISTORY: Screening TECHNIQUE: Craniocaudal and mediolateral oblique 3-D tomosynthesis images were obtained and synthetic 2-D images were generated. CAD analysis was submitted and interpreted. COMPARISON: Comparison to multiple prior studies sequentially, with oldest reviewed study dated 01/2016. BREAST PARENCHYMAL COMPOSITION: Not dense: There are scattered areas of fibroglandular density. FINDINGS: There is no evidence of suspicious mass, calcification, or architectural distortion to sugg est malignancy in either breast. There has been no suspicious interval change. IMPRESSION: 1. No mammographic evidence of malignancy. 2. Recommend routine screening mammography in one year. BI-RADS Category 1: Negative Reviewed, dictated and finalized at location B.
== END 2024-03-20 14:30 | disposition home or self-care (01) ==
LOC: ANHIMG 14:31
PROVIDERS: PCP Family Medicine; Visit Provider Nurse Practitioner Obstetrics & Gynecology
DX: Z12.31 Encounter for screening mammogram for malignant neoplasm of breast (principal)
CPT/HCPCS: 77063; 77067

== ENCOUNTER 2024-08-20 11:49 | Outpatient (CLI) | payer BC, SELFPAY | END 2024-08-20 11:50 | disposition home or self-care (01) | LOC: MICIMG 11:55 | PROVIDERS: PCP Family Medicine; Visit Provider Family Medicine | DX: M25.552 Pain in left hip (principal) | CPT/HCPCS: 73502 ==

== ENCOUNTER 2025-04-10 17:59 | Emergency (ER) | payer BC, SELFPAY ==
[2025-04-10 18:06] VITALS: BP 125/81; PULSE 80; RESP 16; TEMP 36.6; O2SAT 98
--- NOTE | 2025-04-10 18:21 | ED.EAR ---
HPI - Ear Problem General Chief complaint: Ear Stated complaint: Ear Pain Time Seen by Provider: 04/10/25 18:05 Source: patient and RN notes reviewed Mode of arrival: ambulatory Limitations: no limitations History of Present Illness HPI Narrative: 59-year-old female presents Express Care complaining of right ear pain for approximately 5 days. Patient reports slight congestion. Patient denies any other upper respiratory symptoms. Patient has any fevers, body aches, chills, nausea vomiting, diarrhea, dizziness, lightheadedness, chest pain, breathing problems, difficulty breathing, shortness of breath, cough, tinnitus, or any other symptoms. Patient denies any recent swimming. Patient reports slight drainage, however ear in the morning. Patient has a significant past medical problems. Patient has been taking Tylenol and ibuprofen help with the pain. Related Data Home Medications ?Medication ?Instructions ?Recorded ?Confirmed ?Last Taken ?Type Lactobac 51-Bifidobac cap PO 09/02/21 03/14/25 Unknown History 3-L.lactis-S.thermophilus 4 billion cell capsule (Daily Probiotic (10 Strains)) calcium carbonate (Calcium 500) 500 mg PO DAILY 09/02/21 03/14/25 Unknown History Allergies Allergy/AdvReac Type Severity Reaction Status Date / Time latex Allergy Unknown Rash Verified 04/10/25 18:06 Sulfa (Sulfonamide Allergy Unknown Rash Verified 04/10/25 18:06 Antibiotics) sulfanilamide Allergy Unknown Rash Verified 04/10/25 18:06 Review of Systems Review of Systems: CONSTITUTIONAL: Denies fever, chills, or sweats. EYES: Denies visual changes, redness, or discharge. ENT: Denies rhinorrhea, congestion, sore throat. Positive for otalgia. CARDIOVASCULAR: Denies chest pain, palpitations, or edema. RESPIRATORY: Denies cough or dyspnea. GASTROINTESTINAL: Denies abdominal pain, nausea, vomiting, or diarrhea. GENITOURINARY: Denies dysuria or hematuria. SKIN: Denies rash or itching. MUSCULOSKELETAL: Denies back pain, joint pain, or myalgia. NEUROLOGIC: Denies headache, numbness, or weakness. PSYCHIATRIC: Denies anxiety or depression. All other systems reviewed are negative, except as documented in HPI. [facility] Past Medical History Medical History Pneumonia due to COVID-19 virus HSV (herpes simplex virus) infection History of non-Hodgkin's lymphoma Eczema Surgical History Surgical History History of appendectomy History of cholecystectomy Family History Family History Father Hypertension Family history of elevated blood lipids, Onset Age: 66 Family history of cardiovascular disease Mother Family history of hyperthyroidism Family history of blood dyscrasia, Onset Age: 66 Grandparent Family history of coronary artery disease, Onset Age: 62 Sibling Diabetes mellitus Social History Social History Social History: Smoking status: Never smoker Second hand tobacco smoke exposure: No Alcohol intake: current Alcohol use details: occasionally Substance use: never Substance use type: does not use Do You Feel Safe in your Home?: Yes Lack of Transportation: No Lack of Food: Never True Current Housing: I Have Housing Concerned About Future Housing: No Difficulty Paying Gas/Electric Bills: No Difficulty Paying for Meds: No Currently Unemployed: No Education: Master's Degree or Higher Difficulty w/ Childcare or Family Care: No Living arrangements: with family Occupation/Education: occupation Additional occupation/education comments: [employer] Gender identity (if verbalized by the patient): Female Sexual Orientation (if Verbalized by the Patient): Straight or Heterosexual Spiritual care concerns: No Comments At the time of my signature, I reviewed and agree with the nursing past medical, surgical, social, and family history. There is no relevant family history pertinent to the patient complaint. Exam Narrative: GENERAL: This is a well-nourished, well-developed adult, in no apparent distress. They are non ill-appearing, nontoxic appearing. HEAD: normocephalic, atraumatic. EYES: Sclera clear/white. Conjunctiva normal. Vision is grossly intact. Extraocular movements intact EARS: External ears normal, right tragal tenderness. Right auditory canal erythematous without exudate. Left Auditory canal clear and without drainage. TMs normal without perforation. Hearing grossly intact. NOSE: External nose normal with no obvious nasal discharge, nasal turbinates without redness, no rhinorrhea. THROAT: Mucous membranes moist, posterior pharynx clear, without erythema or swelling. Uvula midline. NECK: Neck supple, non-tender without lymphadenopathy, masses or thyromegaly. CARDIOVASCULAR: Regular rate and rhythm without murmurs, gallops, or rubs. RESPIRATORY: Clear to auscultation. Breath sounds equal bilaterally. No wheezes, rales, or rhonchi. SKIN: warm, Dry, intact with no suspicious lesions or rash, good texture and turgor. NEURO: awake, alert, and oriented to person, place and time. There were no obvious focal neurologic abnormalities. EXTREMITIES: No joint tenderness, effusion, or edema noted. Course Course Emergency Course: Portions of this record may have been created with voice recognition software Level of Care: Express Care Visit Vital Signs Vital signs: Vital Signs Temperature 97.9 F 04/10/25 18:06 Pulse Rate 80 04/10/25 18:06 Respiratory Rate 16 04/10/25 18:06 Blood Pressure 125/81 04/10/25 18:06 Pulse Oximetry 98 04/10/25 18:06 Temperature 97.9 F 04/10/25 18:06 Pulse Rate 80 04/10/25 18:06 Respiratory Rate 16 04/10/25 18:06 Blood Pressure 125/81 04/10/25 18:06 Pulse Oximetry 98 04/10/25 18:06 Reviewed Medical Decision Making MDM Narrative Medical decision making narrative: Patient has right-sided otitis externa. Will treat with ofloxacin ear drops. Discussed physical exam findings. Advised supportive measures and signs/symptoms to go to the ER. Pt is appropriate for outpt treatment and f/u. Differential Diagnosis Differential Diagnosis: Otitis media, otitis externa, upper respiratory infection, impacted cerumen. Vital Signs Vital Signs: Vital Signs Temperature 97.9 F 04/10/25 18:06 Pulse Rate 80 04/10/25 18:06 Respiratory Rate 16 04/10/25 18:06 Blood Pressure 125/81 04/10/25 18:06 Pulse Oximetry 98 04/10/25 18:06 Temperature 97.9 F 04/10/25 18:06 Pulse Rate 80 04/10/25 18:06 Respiratory Rate 16 04/10/25 18:06 Blood Pressure 125/81 04/10/25 18:06 Pulse Oximetry 98 04/10/25 18:06 Critical Care Time Critical Care Time Critical Care Time: No Discharge Plan Discharge Clinical Impression: Otitis externa Patient Disposition: Home Condition: Stable Instructions: Antibiotic Form, How to Use Ear Drops (ED), Ear Infection (ED) Additional Instructions: Take antibiotic drops as directed. Tylenol or ibuprofen as needed for pain. You may take ibuprofen 600 mg to 800 mg every 6-8 hours. Do not exceed more than 800 mg of ibuprofen per dose. Do not exceed more than 3200 mg ibuprofen in a day. You may take up to 1000 mg Tylenol every 6-8 hours. Do not exceed 1000 mg per dose, do exceed more than 4000 mg of Tylenol in a day. Avoid water or anything into the ear for one week Follow up with your personal physician for further evaluation and treatment within 3-5days. If your symptoms persist, change or worsen significantly, go to the emergency department for further evaluation. Patient Language: Czech Prescriptions: New ofloxacin 0.3 % drops 10 drp RIGHT EAR DAILY 7 Days Qty: 10 0RF No Action calcium carbonate [Calcium 500] 500 mg calcium (1,250 mg) tablet,chewable 500 mg PO DAILY Daily Probiotic (10 Strains) 4 billion cell capsule PO Zepbound 10 mg/0.5 mL pen injector 10 mg subcut WEEKLY Qty: 2 2RF valacyclovir 1 gram tablet 2,000 mg PO Q12H PRN (Reason: cold sores) Qty: 20 0RF Rx Instructions: Take 2 grams (2 tabs) every 12 hours for 1 day then stop. Follow-up/Referrals: Kai Wang MD [Primary Care Provider, [facility]] Time of Disposition: 18:16
== END 2025-04-10 18:20 | disposition home or self-care (01) ==
PROVIDERS: PCP Family Medicine
DX: H60.91 Unspecified otitis externa, right ear (principal); Z85.72 Personal history of non-Hodgkin lymphomas; Z86.16 Personal history of COVID-19
CPT/HCPCS: 99213; G0463